=== PATIENT | male | born 1965 | race African-American/Black ===

== ENCOUNTER 2023-11-24 14:22 | Emergency (ER) | payer OTHER, SELFPAY ==
[2023-11-24 14:46] VITALS: BP 121/61; PULSE 63; RESP 18; TEMP 36.3; O2SAT 97; BMI 21.8
--- NOTE | 2023-11-24 14:47 | ED_ITS ---
HPI - General Adult General Chief complaint: Extremity Problem Stated complaint: r foot pain Time Seen by Provider: 11/24/23 14:55 Source: patient and RN notes reviewed Mode of arrival: ambulatory Limitations: no limitations History of Present Illness ED Provider: Madelyn Khalil PA-C HPI narrative: This is a 58-year-old male, with no known medical problems, who presents emergency department with complaints of pain in between the right 5th toe for many months. Denies any injury or trauma. Denies any fevers or chills. He has not seen a lockstitch zipper setter before. No other complaints or concerns at this time. MD complaint: Toe pain Relieving factors: none Exacerbating factors: none Associated symptoms: denies other symptoms Treatments prior to arrival: none Related Data Allergies Allergy/AdvReac Type Severity Reaction Status Date / Time No Known Allergies Allergy Verified 11/24/23 14:48 Review of Systems Review of Systems: Yes all other systems are reviewed and are negative Constitutional: Constitutional: Reports as per [facility] Past Medical History Attestation statement: The following information was validated with the patient. Social History Social History Advance Directives: No Advance Directives Information Provided: No Physical Exam ED Vital Signs: Vital Signs - 24 hr 11/24/23 14:46 11/24/23 15:20 Temperature 97.4 F 97.4 F Pulse Rate 63 63 Respiratory Rate 18 18 Blood Pressure 121/61 121/61 Pulse Oximetry 97 97 Oxygen Delivery Method Room Air Room Air BMI result Body Mass Index 21.8 Const General: cooperative, comfortable and no acute distress Orientation/consciousness: patient oriented x3 Limitations: no limitations HENMT Head: Yes normal to inspection, Yes normocephalic and Yes atraumatic Ears: hearing grossly normal bilaterally General nose exam: Normal external nose present Face and sinus: Yes normal facial exam Mouth: Normal oral and palatal mucosa present, oropharynx normal and moist mucous membranes Throat: Yes posterior oropharynx normal Eyes General: appearance normal, both eyes and all related structures Eyelids: Yes eyelids normal Conjunctivae: conjunctivae normal Sclerae: sclerae normal Pupils: Equal, round and reactive pupils present EOM: EOMs intact bilaterally Neck Neck: Yes normal visual inspection, Yes full ROM and Yes no lymphadenopathy Lymphatic: no lymphadenopathy noted Chest Chest palpation & inspection: normal inspection of the chest Resp Effort & Inspection: normal respiratory effort and able to speak in complete sentences Auscultation: clear to auscultation bilaterally, no crackles, no rales, no rhonchi and no wheezes Cardio Rate: regular rate Rhythm: regular rhythm Heart sounds: S1 normal heart sound present and S2 normal heart sound present GI Inspection: Yes normal to inspection Skin General skin exam: no rashes or lesions noted Trauma: no lacerations or abrasions Wounds: no wounds Neuro General: patient oriented x3 and moves all extremities Cranial nerves: Yes Equal, round and reactive pupils present Extrem Other: Right 5th toe, with dry callus noted on the lateral aspect, no surrounding erythema or warmth, no induration, no drainage. General: Yes normal to inspection Right upper extremity: normal to inspection Left upper extremity: normal to inspection Right lower extremity: normal to inspection Left lower extremity: normal to inspection Course Course Course Narrative: This is an RME: Additional HPI, ROS, PE not included below will be deferred to primary provider. RME assessment and note performed by: Madelyn Khalil PA-C This is [id number] who presents to the ER with complaints of Medical Decision Making Medical Decision Making MDM Narrative: This is a 58-year-old male who presents emergency department with complaints of toe pain for many months. On arrival, vital signs within normal limits. Patient has no sign of infection on examination, patient has a callus in between his toes, he was advised to follow-up with Podiatry, as well as place cushion in between toes to help with pain relief. Does not need antibiotics or any other further intervention at this time. Patient understands agrees with plan. Patient stable for discharge. Differential Diagnosis Differential Diagnoses: The differential diagnosis associated with the presentation includes Callus, corn, cellulitis, abscess Discharge Plan Discharge Clinical Impression: Callus between toes, [place] or callus Patient Disposition: Home, Self-Care Additional Instructions: You you were seen in the emergency department due to pain in between your toes. Something called a callus corn. Please see lockstitch zipper setter for further management. Use special pads and between your toes prevent rubbing. Tight shoes can worsen calluses. It is very important that you wear socks and shoes that fit properly. You may take ibuprofen and/or Tylenol as needed. Call the lockstitch zipper setter for follow-up. Any new worsening symptoms occur including not limited to fevers, chills, increased redness, pain, please return for re-evaluation. Referrals: Ingrid Danielle DPM [Physician] - Hakan Yoder MD [Physician] - Interventions: ED Discharge Assessment Last Done: 11/24/23 15:20 Discharge Date/Time: 11/24/23 15:20 Print Language: [place]
[2023-11-24 15:20] VITALS: BP 121/61; PULSE 63; RESP 18; TEMP 36.3; O2SAT 97
== END 2023-11-24 15:20 | disposition home or self-care (01) ==
PROVIDERS: Emergency Provider Emergency Medicine
DX: L84 Corns and callosities (principal)
CPT/HCPCS: 99282; 99283